=== PATIENT | female | born 1980 | race Caucasian/White ===

== ENCOUNTER 2019-11-04 01:22 | Emergency (ER) | payer BC ==
[2019-11-04] MEDS ORDERED: LORazepam 1 MG Tab PO ONE (02:32)
--- NOTE | 2019-11-04 02:38 | EDM.PDOC ---
ED HPI GENERAL MEDICAL PROBLEM - General Chief Complaint: General Stated Complaint: DIZZY,HIGH BP Time Seen by Provider: 11/04/19 02:00 Source of Information: Reports: Patient, Family History Limitations: Reports: No Limitations - History of Present Illness INITIAL COMMENTS - FREE TEXT/NARRATIVE: 39-year-old female with chronic anxiety, tonight had tachycardia, shortness of breath and was panicking and needed to get to the hospital for reassurance. She has had 1 month of recurring dizzy spells and had a fairly large work-up just over a week ago including Lyme's disease testing, autoimmune testing, but tonight was worried about a blood clot in her lungs or something more serious. She has been on 25 mg of sertraline for several years, was increased to 50 mg recently. She has a fitbit and on the way to the hospital her pulse reached as high as 160. No pain. No peripheral edema. 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 Denies: Fever, Chills HEENT: Reports: No Symptoms Respiratory: Reports: Shortness of Breath Cardiovascular: Reports: Palpitations. Denies: Chest Pain GI/Abdominal: Denies: Nausea, Vomiting : Reports: No Symptoms Musculoskeletal: Reports: Muscle Pain (Generalized body aches) Skin: Reports: Diaphoresis Neurological: Reports: Dizziness, Paresthesia Psychiatric: Reports: Anxiety ED EXAM, GENERAL - Physical Exam Exam: See Below Exam Limited By: No Limitations General Appearance: Alert, No Apparent Distress, Anxious Eye Exam: Bilateral Eye: Normal Inspection Throat/Mouth: Normal Inspection Head: Atraumatic Neck: Normal Inspection, Supple, Non-Tender Respiratory/Chest: No Respiratory Distress, Lungs Clear Cardiovascular: Regular Rate, Rhythm, No Murmur, Tachycardia GI/Abdominal: Soft, Non-Tender Extremities: Normal Inspection. No: Pedal Edema Neurological: Alert, Oriented Psychiatric: Anxious Skin Exam: Warm, Dry Course - Vital Signs Last Recorded V/S: Last Vital Signs Temp 96.8 F L 11/04/19 01:54 Pulse 90 11/04/19 02:39 Resp 16 11/04/19 02:39 BP 137/87 11/04/19 02:39 Pulse Ox 99 11/04/19 02:39 - Orders/Labs/Meds Labs: Laboratory Tests 11/04/19 11/04/19 Range/Units 02:35 02:35 D-Dimer, Quantitative < 100 (0.0-400.0) ng/mL TSH, Ultra Sensitive 4.101 H (0.358-3.740) uIU/mL Meds: Medications Discontinued Medications Generic Name Dose Route Start Last Admin Trade Name Agustina PRN Reason Stop Dose Admin Lorazepam 1 mg 11/04/19 02:32 11/04/19 02:37 Ativan PO 11/04/19 02:33 1 mg ONETIME ONE Administration - Re-Assessments/Exams Free Text/Narrative Re-Assessment/Exam: 11/04/19 02:47 Initial cardiac monitoring showed sinus tachycardia in the 120s and mild hypertension, over the course of 1/2 to 1 hour of talking with the patient her vitals normalized. Blood was drawn for a d-dimer and TSH, she was given 1 mg of oral Ativan. No further work-up was done as she had a complete work-up at her own clinic last week. 11/04/19 03:16 D-dimer is 0, TSH is 4. Patient's blood pressure normalized and pulse normalized while waiting for lab results. She also felt better after the Ativan. She will be discharged with 10 additional doses to take sparingly if needed and continue with the 50 mg sertraline dose. Recheck with her primary provider when she returns home. Departure - Departure Time of Disposition: 03:25 Disposition: Home, Self-Care 01 Clinical Impression: Panic attack - Discharge Information Instructions: Panic Attack, [id number] Referrals: PCP,None [Primary Care Provider] - Forms: ED Department Discharge Care Plan Goals: Continue with your current medications, and use 1/2 to 1 pill of Ativan when needed for acute persistent anxiety. Sepsis Event Note (ED) - Evaluation Sepsis Screening Result: No Definite Risk
== END 2019-11-04 03:25 | disposition home or self-care (01) ==
LOC: JP.ED 01:22
DX: F41.0 Panic disorder [episodic paroxysmal anxiety] (principal); Z79.899 Other long term (current) drug therapy
CPT/HCPCS: 36415; 84443; 85379; 99283; A9270